=== PATIENT | female | born 1990 | race African-American/Black ===

== ENCOUNTER 2022-12-31 14:25 | Day surgery (SDC) | payer BC ==
[2022-12-31 14:52] VITALS: BMI 34.7
[2022-12-31] MEDS ORDERED: hydrALAZINE 20 MG/ML VIAL SLOW IVP PRN (15:51)
== END 2022-12-31 16:53 | disposition home or self-care (01) ==
LOC: CSHLD/OP 14:25
PROVIDERS: ATTEND Obstetrics & Gynecology
DX: O47.1 False labor at or after 37 completed weeks of gestation (principal); O24.410 Gestational diabetes mellitus in pregnancy, diet controlled; Z79.899 Other long term (current) drug therapy; Z3A.39 39 weeks gestation of pregnancy
CPT/HCPCS: 99283

== ENCOUNTER 2023-01-01 10:23 | Day surgery (SDC) | payer BC ==
[2023-01-01 10:44] VITALS: BMI 34.7
== END 2023-01-01 11:15 | disposition home or self-care (01) ==
LOC: CSHLD/OP 10:23
PROVIDERS: ATTEND Obstetrics & Gynecology
DX: O47.1 False labor at or after 37 completed weeks of gestation (principal); Z3A.39 39 weeks gestation of pregnancy
CPT/HCPCS: 99282

== ENCOUNTER 2023-01-01 18:00 | Inpatient (IN) | payer BC, OTHER ==
[2023-01-02] MEDS ORDERED: NS w/ Oxytocin 30 units 500 ML IV SCH ×2 (00:37)
[2023-01-02] MEDS ORDERED: Ondansetron PF 4 MG/2 ML Vial IVP PRN ×3 (00:37→17:28)
[2023-01-02] MEDS ORDERED: Diphenoxylate HCl/Atropine Tablet PO PRN ×2 (00:37)
[2023-01-02] MEDS ORDERED: Misoprostol 200 MCG TAB PR PRN (00:37)
[2023-01-02] MEDS ORDERED: Carboprost 250 MCG/ML AMP IM PRN (00:37)
[2023-01-02] MEDS ORDERED: HYDROcodone/Acetaminophen 5/325 mg Tablet PO PRN ×3 (00:37→22:20)
[2023-01-02] MEDS ORDERED: hydrALAZINE 20 MG/ML VIAL SLOW IVP PRN ×2 (00:37→22:20)
[2023-01-02] MEDS ORDERED: fentaNYL 50 mcg/mL 1 mL Vial SLOW IVP PRN (00:37)
[2023-01-02] MEDS ORDERED: Ibuprofen 800 MG TAB PO PRN (00:37)
[2023-01-02] MEDS ORDERED: Methylergonovine 0.2 MG/ML VIAL IM PRN (00:37)
[2023-01-02] MEDS ORDERED: Promethazine HCl 25 MG/ML VIAL IM PRN ×3 (00:37→17:28)
[2023-01-02] MEDS ORDERED: Lidocaine 1% (PF) 30 ML VIAL SC PRN (00:37)
[2023-01-02] MEDS ORDERED: Tranexamic Acid 1,000 MG/10 ML VIAL IVP PRN (00:37)
[2023-01-02 00:47] VITALS: BMI 34.7
[2023-01-02 01:23] LABS: Hemoglobin 11.2 g/dL (12.0-15.5); Mean Corpuscular HGB CONC 32.8 g/dL (32.0-36.0); Mean Corpuscular Hemoglobin 26.9 pg (27.0-33.0); Mean Corpuscular Volume 81.8 fl (81.6-98.3); Mean Platelet Volume 11.9 fl (7.4-10.4); Platelet Count 215 10x3/uL (150-450); RBC Distribution Width 14.8 % (11.5-14.5); Red Blood Cell (RBC) Count 4.17 10x6/uL (3.90-5.03); White Blood Cell (WBC) Count 7.5 10x3/uL (3.5-10.5)
[2023-01-02 01:56] LABS: HBSAg Index 0.19 S/CO (0-0.99); Hep B Surf Ag - L&D Non-Reactive S/CO (NonReactive)
[2023-01-02 01:57] LABS: Syphilis Antibody Nonreactive (Nonreactive); Syphilis Antibody Index 0.03 S/CO (<1.00 Non-Reactive)
[2023-01-02] MEDS: Lactated Ringer's 1,000 ML IV SCH ×3 (02:00→10:45)
[2023-01-02] MEDS ORDERED: fentaNYL/Ropivacaine Epidural 100 ML ONE (02:07)
[2023-01-02] MEDS ORDERED: Moisturizing Cream (Eucerin) 113 GM JAR TOP PRN ×2 (02:44→17:28)
[2023-01-02] MEDS ORDERED: Lactated Ringer's 500 ML IV PRN (02:44)
[2023-01-02] MEDS ORDERED: Naloxone HCl 0.4 mg/ml Vial IVP PRN ×4 (02:44→17:28)
[2023-01-02] MEDS ORDERED: Acetaminophen 325 MG TAB PO PRN (02:44)
[2023-01-02] MEDS ORDERED: diphenhydrAMINE 50 MG/ML VIAL IVP PRN ×2 (02:44→17:28)
[2023-01-02] MEDS ORDERED: ePHEDrine Sulfate 50 MG/10 ML VIAL SLOW IVP PRN (02:44)
[2023-01-02] MEDS ORDERED: fentaNYL 2 mcg/Ropivacaine 0.2% Epidural 100 ML CADD EPIDURAL SCH (02:45)
[2023-01-02] MEDS ORDERED: Communication Order-Pharmacy FS SCH ×2 (02:45→17:30)
[2023-01-02] MEDS ORDERED: Azithromycin 500 MG VIAL ONE (16:25)
[2023-01-02] MEDS ORDERED: Famotidine/PF 20 mg/2ml Vial ONE (16:25)
[2023-01-02] MEDS ORDERED: Sodium Chloride 0.9% 200 ML ONE (16:25)
[2023-01-02] MEDS ORDERED: CEFAZOLIN 2 GM VIAL ONE (16:25)
[2023-01-02] MEDS ORDERED: Misoprostol 200 MCG TAB ONE (16:26)
[2023-01-02] MEDS ORDERED: Tranexamic Acid 1,000 MG/10 ML VIAL ONE (16:26)
[2023-01-02] MEDS ORDERED: Carboprost 250 MCG/ML AMP ONE (16:27)
[2023-01-02] MEDS ORDERED: Bicitra 30 ML UDCUP PO PRN (17:00)
[2023-01-02] MEDS ORDERED: Azithromycin 500 MG in Sodium Chloride 0.9% 250 ML 250 ML IVPB SCH (17:00)
[2023-01-02] MEDS ORDERED: Famotidine/PF 20 mg/2ml Vial SLOW IVP PRN (17:00)
[2023-01-02] MEDS ORDERED: CEFAZOLIN 2 GM in Sodium Chloride 0.9% 100 ML IVPB SCH (17:00)
[2023-01-02] MEDS ORDERED: Ondansetron PF 4 MG/2 ML Vial ONE (17:09)
[2023-01-02] MEDS ORDERED: Dexamethasone 4 mg/ml Vial ONE (17:09)
[2023-01-02] MEDS ORDERED: Oxytocin 10 UNITS/ML VIAL ONE (17:09)
[2023-01-02] MEDS ORDERED: Morphine PF 10 MG/10 ML VIAL ONE (17:09)
[2023-01-02] MEDS ORDERED: PHENYLEPHRINE-NS 100 MCG/ML 10 ML SYRINGE ONE (17:09)
[2023-01-02] MEDS ORDERED: Naloxone HCl 0.4 mg/ml Vial IV PRN (17:28)
[2023-01-02] MEDS ORDERED: Fentanyl 100 MCG/2 ML VIAL SLOW IVP PRN (17:28)
[2023-01-02] MEDS ORDERED: Promethazine HCl 25 MG SUPP PR PRN (17:28)
[2023-01-02] MEDS ORDERED: Ketorolac Tromethamine 30 MG/ML VIAL IVP SCH (17:30)
[2023-01-02] MEDS: Misoprostol 100 MCG TAB VAG SCH (18:45)
[2023-01-02] MEDS ORDERED: Zolpidem Tartrate 5 MG TAB PO PRN (22:20)
[2023-01-02] MEDS ORDERED: Bisacodyl 10 MG SUPP PR PRN (22:20)
[2023-01-02] MEDS ORDERED: Lanolin Ointment 7 GM TUBE TOP PRN (22:20)
[2023-01-02] MEDS ORDERED: diphenhydrAMINE 25 MG CAP PO PRN (22:20)
[2023-01-02] MEDS ORDERED: Boostrix 0.5 ML (Tdap) VIAL (>/=7 yrs of age) IM ONE (22:20)
[2023-01-02] MEDS ORDERED: Docusate 100 MG CAP PO SCH (22:30)
[2023-01-02] MEDS ORDERED: Ferrous Sulfate 325 MG TAB PO SCH (22:30)
[2023-01-02] MEDS ORDERED: Ibuprofen 800 MG TAB PO SCH (22:30)
[2023-01-03] MEDS ORDERED: Promethazine HCl 25 MG SUPP PR PRN (00:30)
[2023-01-03] MEDS ORDERED: diphenhydrAMINE 50 MG/ML VIAL IVP PRN (00:30)
[2023-01-03] MEDS ORDERED: Naloxone HCl 0.4 mg/ml Vial IVP PRN (00:30)
[2023-01-03] MEDS ORDERED: Promethazine HCl 25 MG/ML VIAL IM PRN (00:30)
[2023-01-03] MEDS ORDERED: Ondansetron PF 4 MG/2 ML Vial IVP PRN (00:30)
[2023-01-03] MEDS ORDERED: Naloxone HCl 0.4 mg/ml Vial IV PRN ×2 (00:30)
[2023-01-03] MEDS ORDERED: NO PO,IM,IV OR SC NARCOTICS FOR 12HR EXCEPT BY ANESTHESIA PO SCH (00:30)
[2023-01-03] MEDS ORDERED: Moisturizing Cream (Eucerin) 113 GM JAR TOP PRN (00:30)
[2023-01-03] MEDS: Ketorolac Tromethamine 30 MG/ML VIAL IVP PRN ×2 (01:00→06:36)
[2023-01-03 04:09] LABS: Hemoglobin 8.8 g/dL (12.0-15.5); Mean Corpuscular HGB CONC 32.6 g/dL (32.0-36.0); Mean Corpuscular Hemoglobin 27.2 pg (27.0-33.0); Mean Corpuscular Volume 83.3 fl (81.6-98.3); Mean Platelet Volume 12.3 fl (7.4-10.4); Platelet Count 209 10x3/uL (150-450); RBC Distribution Width 14.2 % (11.5-14.5); Red Blood Cell (RBC) Count 3.24 10x6/uL (3.90-5.03); White Blood Cell (WBC) Count 18.9 10x3/uL (3.5-10.5)
[2023-01-03] MEDS: Ibuprofen 800 MG TAB PO SCH ×4 (09:11→21:20)
[2023-01-03] MEDS: Prenatal Vitamin 1 TAB PO SCH (09:11)
[2023-01-03] MEDS: Docusate 100 MG CAP PO SCH ×2 (09:12→21:20)
[2023-01-03] MEDS: HYDROcodone/Acetaminophen 5/325 mg Tablet PO PRN ×3 (10:24→18:49)
[2023-01-03] MEDS ORDERED: Zolpidem Tartrate 5 MG TAB PO PRN (11:35)
[2023-01-03] MEDS ORDERED: Bupivacaine 0.25% HCL 30 ML VIAL ONE (12:46)
[2023-01-03] MEDS ORDERED: Bupivacaine HCl 0.5%/Epinephrine 1:200,000/PF 30 ml Vial ONE (12:46)
[2023-01-03] MEDS ORDERED: Lidocaine 2% MPF 10 ML AMP (For Epidural Use) ONE (12:46)
[2023-01-03] MEDS: Ferrous Sulfate 325 MG TAB PO SCH ×2 (14:29→21:19)
[2023-01-03] MEDS: Simethicone Chewable 80 MG TAB PO PRN (18:41)
[2023-01-04] MEDS: HYDROcodone/Acetaminophen 5/325 mg Tablet PO PRN ×5 (01:00→22:02)
[2023-01-04] MEDS: Ibuprofen 800 MG TAB PO SCH ×3 (05:25→21:04)
[2023-01-04] MEDS: Simethicone Chewable 80 MG TAB PO PRN ×3 (05:28→22:05)
[2023-01-04] MEDS: Prenatal Vitamin 1 TAB PO SCH (08:39)
[2023-01-04] MEDS: Docusate 100 MG CAP PO SCH ×2 (08:39→21:04)
[2023-01-04] MEDS: Ferrous Sulfate 325 MG TAB PO SCH ×2 (08:39→21:04)
[2023-01-05] MEDS: Simethicone Chewable 80 MG TAB PO PRN ×2 (02:20→06:24)
[2023-01-05] MEDS: HYDROcodone/Acetaminophen 5/325 mg Tablet PO PRN ×3 (02:21→11:25)
[2023-01-05 05:04] LABS: Hemoglobin 8.5 g/dL (12.0-15.5); Mean Corpuscular HGB CONC 31.1 g/dL (32.0-36.0); Mean Corpuscular Hemoglobin 25.8 pg (27.0-33.0); Mean Platelet Volume 11.2 fl (7.4-10.4); Platelet Count 233 10x3/uL (150-450); Red Blood Cell (RBC) Count 3.29 10x6/uL (3.90-5.03); White Blood Cell (WBC) Count 9.9 10x3/uL (3.5-10.5)
[2023-01-05] MEDS: Ibuprofen 800 MG TAB PO SCH (06:24)
[2023-01-05] MEDS: Misoprostol 100 MCG TAB VAG SCH (07:10)
[2023-01-05] MEDS: Docusate 100 MG CAP PO SCH (07:52)
[2023-01-05] MEDS: Ferrous Sulfate 325 MG TAB PO SCH (07:52)
[2023-01-05] MEDS: Prenatal Vitamin 1 TAB PO SCH (07:52)
[2023-01-05 08:35] VITALS: BP 125/63; TEMP 98.4
== END 2023-01-05 14:15 | disposition home or self-care (01) | DRG 787 ==
LOC: CSHLD 01-02 00:18 → CSHPP 01-02 21:00
PROVIDERS: ADMIT Obstetrics & Gynecology; ATTEND Obstetrics & Gynecology
PROC: 10D00Z1 Extraction of Products of Conception, Low, Open Approach (ICD-10-PCS; principal; 2023-01-02)
DX: O24.420 Gestational diabetes mellitus in childbirth, diet controlled (principal); D62 Acute posthemorrhagic anemia; Z3A.39 39 weeks gestation of pregnancy; Z37.0 Single live birth; O32.8XX0 Maternal care for other malpresentation of fetus, not applicable or unspecified; O32.4XX0 Maternal care for high head at term, not applicable or unspecified; O62.1 Secondary uterine inertia; O90.81 Anemia of the puerperium
CPT/HCPCS: 36415; 36416; 51702; 85027; 86780; 86850; 86900; 86901; 87340; 99282; 99283; J1100; J1885; J2274; J2405; J2590; J7120; S0020; S0028